=== PATIENT | female | born 1970 | race African-American/Black ===

== ENCOUNTER → 2019-04-10 | Outpatient (CLI) | payer MEDICAID, SELFPAY ==
[2019-04-10 11:52] VITALS: BMI 40.6
--- NOTE | 2019-04-10 12:00 | RAD_ITS ---
STUDY: X-RAY - RIGHT ANKLE REASON FOR EXAM: Female, 48 years old. Medial ankle pain, no known injury TECHNIQUE: 3 view(s) of the ankle. COMPARISON: None. FINDINGS: Normal visualized distal tibia and fibula. Normal medial and lateral malleoli. Normal tibiotalar articulation and ankle mortise. Calcaneal spurs. The visualized subtalar, talonavicular, calcaneocuboid and tarsal articulations are normal. The soft tissue structures are unremarkable. RAD/Ankle min 3 Views IMPRESSION: Calcaneal spurs. Electronically Signed: Joshua Jennings, at 12:23 EST , Service support ,
== END | disposition home or self-care (01) ==
PROVIDERS: Referring Provider Physician Assistant Surgical; Visit Provider Physician Assistant Surgical
DX: S96.911A Strain of unspecified muscle and tendon at ankle and foot level, right foot, initial encounter (principal)
CPT/HCPCS: 73610